=== PATIENT | male | born 1960 | race Caucasian/White ===

== ENCOUNTER 2018-03-18 10:17 | Outpatient (CLI) | payer OTHER ==
--- NOTE | 2018-03-18 12:13 | ULT ---
STANDARD BILATERAL RENAL ULTRASOUND: HISTORY: Renal cyst. COMPARISON: None. FINDINGS: The right kidney measures 12.2 x 6.6 x 6.6 cm, and the left kidney measures 12.8 x 5.8 x 7.2 cm. An inferior pole right renal cyst is present, measuring less than 1 cm. Pre-void urinary bladder volume is 37 mL. The technologist measured a hyperechoic focus in the posterior wall of the urinary bladder, measuring 2.4 x 1.5 x 0.9 cm. IMPRESSION: 1. Right-sided renal cysts. 2. The technologist measured a mass in the posterior wall of the urinary bladder. This may reflect a hypertrophic prostate versus a mass. Direct visualization or CT is recommended. POS: [facility]
== END 2018-03-18 10:18 | disposition home or self-care (01) ==
LOC: SCSULT 10:17
PROVIDERS: ATTEND Urology
DX: N28.1 Cyst of kidney, acquired (principal); N32.9 Bladder disorder, unspecified
CPT/HCPCS: 76770

== ENCOUNTER 2019-02-25 11:58 | Day surgery (SDC) | payer OTHER ==
[2019-02-24 17:23] VITALS: BMI 32.1
[2019-02-25 12:57] LABS: #Eosinphils 0.1 thou/uL (0.0-0.7); #Monocytes 0.5 thou/uL (0.11-0.59); #Neutrophils 4.1 thou/uL (1.40-6.50); %Basophils 0.3 % (0.0-1.0); %Eosinophils 1.8 % (0.0-10.0); %Monocytes 8.7 % (0.0-10.0); %Neutrophils 72.2 % (42.0-75.0); Hemoglobin 14.4 g/dL (14.0-18.0); Mean Corpuscular HGB CONC 34.7 g/dL (32.0-36.0); Mean Corpuscular Hemoglobin 31.1 pg (27.0-31.0); Mean Corpuscular Volume 89.6 fL (78.0-98.0); Mean Platelet Volume 8.8 fL (7.4-10.4); Platelet Count 239 thou/uL (130-400); RBC Distribution Width 11.7 % (11.5-14.5); Red Blood Cell (RBC) Count 4.64 mill/uL (4.70-6.10); White Blood Cell (WBC) Count 5.7 thou/uL (4.8-10.8)
[2019-02-25 13:05] LABS: INR-International Normal Ratio 1.2; PTT 32.4 SEC (22.9-36.1); Prothrombin Time 15.4 SEC (12.0-14.7)
[2019-02-25 13:17] LABS: Anion Gap 14 mmol/L (10-20); BUN (Urea Nitrogen) 9 mg/dL (8.4-25.7); Calc. Creatinine Clearance 159 mL/min (70-130); Calcium 9.4 mg/dL (7.8-10.44); Carbon Dioxide 24 mmol/L (22-29); Chloride 104 mmol/L (98-107); Estimated GFR-MDRD Greater than 90; Glucose 158 mg/dL (70-105); Potassium 4.2 mmol/L (3.5-5.1); Sodium 138 mmol/L (136-145)
[2019-02-25] MEDS ORDERED: PROPOFOL 200 MG/20 ML VIAL ONE (13:55)
[2019-02-25] MEDS ORDERED: PROPOFOL 20 ML ONE (14:15)
--- NOTE | 2019-02-25 21:13 | OP ---
DATE OF PROCEDURE: 02/25/2019 PROCEDURE PERFORMED: External cardioversion. REFERRING PHYSICIAN: Dr. Rosa Nichols. REASON FOR PROCEDURE: Mr. Freitas is a pleasant 58-year-old man with persistent atrial fibrillation, nonischemic cardiomyopathy, bicuspid aortic valve with moderate stenosis, diabetes, and hypertension, who had a pulmonary venous isolation in August 2016 and redo ablation in November [address] Hubbard, now here with late recurrence of atypical atrial flutter. He has been anticoagulated with Eliquis. DESCRIPTION OF PROCEDURE: The patient received propofol by Anesthesia specialist. After adequate level of sedation achieved, a synchronized 70-joule shock promptly converted the patient back to sinus rhythm. CONCLUSION: Successful cardioversion. PLAN: Continue anticoagulation and monitor for recurrence of arrhythmias, in which case repeat ablation versus antiarrhythmic therapy could be considered. Job ID: [id number]
--- NOTE | 2019-03-03 18:22 | EKG ---
Test Reason : PREOP Blood Pressure : / mmHG Vent. Rate : 099 BPM Atrial Rate : 241 BPM P-R Int : 000 ms QRS Dur : 102 ms QT Int : 370 ms P-R-T Axes : 066 -22 063 degrees QTc Int : 474 ms Atrial flutter with variable A-V block Possible Anterior infarct (cited on or before 28-MAY-2016) Abnormal ECG When compared with ECG of 23-OCT-2016 13:43, Atrial flutter has replaced Sinus rhythm Nonspecific T wave abnormality no longer evident in Inferior leads Nonspecific T wave abnormality no longer evident in Anterior leads Confirmed by FRANCK CHONG (2) on 03/03/2019 6:22:26 PM Referred By: CAITIE Confirmed By:FRANCK CHONG
== END 2019-02-25 15:24 | disposition home or self-care (01) ==
LOC: CCL 11:58
PROVIDERS: ATTEND Internal Medicine Cardiovascular Disease
PROC: 5A2204Z Restoration of Cardiac Rhythm, Single (ICD-10-PCS; principal; 2019-02-25)
DX: I48.4 Atypical atrial flutter (principal); I42.8 Other cardiomyopathies; I48.1 Persistent atrial fibrillation; I35.0 Nonrheumatic aortic (valve) stenosis; E11.9 Type 2 diabetes mellitus without complications; I10 Essential (primary) hypertension; Z79.01 Long term (current) use of anticoagulants; Z79.84 Long term (current) use of oral hypoglycemic drugs; Z79.899 Other long term (current) drug therapy; Z98.890 Other specified postprocedural states
CPT/HCPCS: 80048; 85025; 85610; 85730; 92960; 93005; 93010; J2704

== ENCOUNTER 2020-09-06 06:45 | Outpatient (CLI) | payer OTHER ==
[2020-09-06 16:22] LABS: Mean Corpuscular HGB CONC 34.7 G/DL (32.0-36.0); Mean Corpuscular Hemoglobin 30.4 PG (27.0-33.0); Mean Corpuscular Volume 87.8 fl (80.0-100.0); Mean Platelet Volume 12.4 fl (7.4-10.4); Platelet Count 298 10x3/uL (130-400); White Blood Cell (WBC) Count 6.1 10x3/uL (4.5-11.0)
[2020-09-06 16:34] LABS: Anion Gap 15 mmol/L (10-20); BUN (Urea Nitrogen) 10 mg/dL (8.4-25.7); Calc. Creatinine Clearance 0 mL/min (70-130); Carbon Dioxide 27 mmol/L (22-29); Chloride 97 mmol/L (98-107); Glucose 210 mg/dL (70-105); Potassium 4.3 mmol/L (3.5-5.1); Sodium 135 mmol/L (136-145)
[2020-09-06 16:45] LABS: PTT 29.5 sec (22.0-33.0)
[2020-09-07 02:56] LABS: SARS-CoV-2 MS2 Positive; SARS-CoV-2 N Gene Negative; SARS-CoV-2 S Gene Negative; SARS-CoV-2 by NAA Not Detected (NotDetected); SARS-CoV-2 orf1ab Negative
== END 2020-09-06 06:46 | disposition home or self-care (01) ==
LOC: LABBT 06:45
PROVIDERS: ATTEND Internal Medicine Cardiovascular Disease
DX: Z01.818 Encounter for other preprocedural examination (principal); I48.91 Unspecified atrial fibrillation; Z20.828 Contact with and (suspected) exposure to other viral communicable diseases
CPT/HCPCS: 80048; 85027; 85610; 85730; 87635; 93005; 93010; U0003

== ENCOUNTER 2020-09-09 11:34 | Day surgery (SDC) | payer OTHER ==
[2020-09-08 14:19] VITALS: BMI 32.1
[~2020-09-09 11:34] MED LIST: Lidocaine 1% PF 5 ML VIAL ONE
[2020-09-09] MEDS ORDERED: PROPOFOL 40 ML ONE (12:30)
[2020-09-09] MEDS ORDERED: Promethazine HCl 25 MG/ML VIAL ONE ×2 (12:31→12:33)
--- NOTE | 2020-09-09 17:11 | OP ---
DATE OF PROCEDURE: 09/09/2020 PROCEDURE PERFORMED: External electrical cardioversion. ADDITIONAL REFERRING PHYSICIAN: Dr. Rosa Nichols. REASON FOR PROCEDURE: Mr. Freitas is a 59-year-old man with prior history of recurrent atrial arrhythmias, 2 prior ablations, most recently in November 2016. He had late recurrence in January 2019 and cardioverted at that time. He has been good since then, but now had another episode of sustained atrial flutter with rapid rates at 110 to 115 beats per minute. He has been on chronic Eliquis anticoagulation with history of left atrial appendage isolation. DESCRIPTION OF PROCEDURE: The patient received propofol by Anesthesia specialist. After adequate level of sedation achieved, a synchronized 70-joule shocks promptly converted the patient back to sinus rhythm. Returned rate of 87 beats per minute. The patient tolerated the procedure well. No complications noted. CONCLUSION: Successful cardioversion. PLAN: For now, continue the current regimen. Continue oral anticoagulation indefinitely. Routine followup in the office in 6 to 8 weeks. Job ID: [id number]
== END 2020-09-09 14:19 | disposition home or self-care (01) ==
LOC: CCL 11:34
PROVIDERS: ATTEND Internal Medicine Cardiovascular Disease
PROC: 5A2204Z Restoration of Cardiac Rhythm, Single (ICD-10-PCS; principal; 2020-09-09)
DX: I48.0 Paroxysmal atrial fibrillation (principal); I48.4 Atypical atrial flutter; I42.8 Other cardiomyopathies; I35.0 Nonrheumatic aortic (valve) stenosis; I10 Essential (primary) hypertension; E11.9 Type 2 diabetes mellitus without complications; E78.5 Hyperlipidemia, unspecified; K21.9 Gastro-esophageal reflux disease without esophagitis; Z79.01 Long term (current) use of anticoagulants; Z79.84 Long term (current) use of oral hypoglycemic drugs; Z79.899 Other long term (current) drug therapy; Z87.891 Personal history of nicotine dependence
CPT/HCPCS: 92960; 93005; 93010; J2550; J2704

== ENCOUNTER 2024-08-31 16:08 | Outpatient (CLI) | payer BC ==
[2024-08-31 17:22] LABS: #Basophils 0.05 10x3/uL (0.0-0.2); %Basophils 0.8 % (0.0-1.0); %Lymphocytes 13.5 % (21.0-51.0); %Monocytes 8.8 % (0.0-10.0); %Neutrophils 72.7 % (42.0-75.0); Hematocrit 40.5 % (42.0-52.0); Hemoglobin 13.6 g/dL (14.0-18.0); Mean Corpuscular HGB CONC 33.6 g/dL (32.0-36.0); Mean Corpuscular Hemoglobin 29.2 pg (27.0-31.0); Mean Corpuscular Volume 86.9 fL (78.0-98.0); Mean Platelet Volume 11.4 fL (7.4-10.4); Platelet Count 243 10x3/uL (130-400); RBC Distribution Width 13.9 % (11.5-14.5); Red Blood Cell (RBC) Count 4.66 mill/uL (4.70-6.10)
[2024-08-31 17:40] LABS: INR-International Normal Ratio 1.3; Prothrombin Time 16.4 sec (12.0-14.7)
[2024-08-31 17:41] LABS: PTT 29.9 sec (22.9-36.1)
[2024-08-31 17:48] LABS: Anion Gap 15 mmol/L (10-20); BUN (Urea Nitrogen) 14 mg/dL (8.4-25.7); Calc. Creatinine Clearance 0 mL/min (70-130); Calcium 9.2 mg/dL (7.8-10.44); Carbon Dioxide 26 mmol/L (23-31); Chloride 99 mmol/L (98-107); Estimated GFR 96; Glucose 161 mg/dL (80-115); Potassium 3.9 mmol/L (3.5-5.1); Sodium 136 mmol/L (136-145)
== END 2024-08-31 16:09 | disposition home or self-care (01) ==
LOC: LABBT 16:08
PROVIDERS: ATTEND Internal Medicine Cardiovascular Disease
DX: Z01.812 Encounter for preprocedural laboratory examination (principal); I48.19 Other persistent atrial fibrillation
CPT/HCPCS: 80048; 85025; 85610; 85730

== ENCOUNTER 2024-09-02 06:24 | Day surgery (SDC) | payer BC ==
[2024-08-31 16:41] VITALS: BMI 31.9
[2024-09-02] MEDS ORDERED: PHENYLEPHRINE-NS 100 MCG/ML 10 ML SYRINGE ONE (08:31)
== END 2024-09-02 09:30 | disposition home or self-care (01) ==
LOC: SDC 06:24
PROVIDERS: ATTEND Internal Medicine Cardiovascular Disease
PROC: B24BZZ4 Ultrasonography of Heart with Aorta, Transesophageal (ICD-10-PCS; principal; 2024-09-02)
DX: I48.19 Other persistent atrial fibrillation (principal); I48.4 Atypical atrial flutter; I42.0 Dilated cardiomyopathy; I35.0 Nonrheumatic aortic (valve) stenosis; I10 Essential (primary) hypertension; E11.9 Type 2 diabetes mellitus without complications; E78.5 Hyperlipidemia, unspecified; K21.9 Gastro-esophageal reflux disease without esophagitis; Z98.890 Other specified postprocedural states; Z95.818 Presence of other cardiac implants and grafts; Z87.891 Personal history of nicotine dependence; Z79.84 Long term (current) use of oral hypoglycemic drugs; Z79.01 Long term (current) use of anticoagulants; Z79.899 Other long term (current) drug therapy
CPT/HCPCS: 93312

== ENCOUNTER 2025-07-05 12:56 | Outpatient (CLI) | payer MEDICARE, BC ==
[2025-07-05 13:31] LABS: Estimated GFR - POC 84.0
== END 2025-07-05 12:57 | disposition home or self-care (01) ==
LOC: SCSMRI 12:56
PROVIDERS: ATTEND Urology
DX: R97.20 Elevated prostate specific antigen [PSA] (principal)
CPT/HCPCS: 36415; 72197; 82565